=== PATIENT | female | born 1945 | race Caucasian/White ===

== ENCOUNTER 2022-04-21 23:18 | Inpatient (IN) | payer OTHER ==
[~2022-04-21] VITALS: Ht 157.5 cm; Wt 68.9 kg
[2022-04-21 23:35] VITALS: BP 155/71
--- NOTE | 2022-04-21 23:35 | NUR ---
TO BED VIA W/C
--- NOTE | 2022-04-22 00:15 | NUR ---
PT TO RADIOLOGY AT THIS TIME
[2022-04-22] MEDS ORDERED: NACL 0.9% 1,000 ML IV ONE ×2 (00:30→04:55)
[2022-04-22 01:48] LABS: BASOPHILS # (AUTO) 0.1 K/uL (0.00-0.22); BASOPHILS % (AUTO) 0.5 % (0.0-2.0); EOSINOPHILS # (AUTO) 0.1 K/uL (0-0.4); EOSINOPHILS % (AUTO) 0.6 % (0.0-4.0); HEMATOCRIT 40.1 % (36-48); HEMOGLOBIN 13.5 g/dL (12.0-16.0); LYMPHOCYTES # (AUTO) 1.8 K/uL (2.5-16.5); LYMPHOCYTES % (AUTO) 18.2 % (20.5-51.1); MEAN CORPUSCULAR HEMOGLOBIN 31 pg (27-31); MEAN CORPUSCULAR HGB CONC 34 g/dL (33-37); MEAN CORPUSCULAR VOLUME 92.6 fL (80-94); MONOCYTES # (AUTO) 0.6 K/uL (0.8-1.0); MONOCYTES % (AUTO) 6.3 % (1.7-9.3); NEUTROPHILS # (AUTO) 7.5 K/uL (1.8-7.7); NEUTROPHILS % (AUTO) 74.4 % (42.2-75.2); PLATELET COUNT (AUTO) 284 K/uL (140-450); RED BLOOD CELL COUNT(AUTO) 4.33 MIL/uL (4.20-5.40); RED CELL DISTRIBUTION WIDTH 15.8 % (11.6-13.7)
[2022-04-22 02:03] LABS: ALBUMIN 4.2 g/dL (3.4-5.0); ANION GAP 9.6 (8-16); ASPARTATE AMINOTRANSFERASE 17 U/L (15-37); CARBON DIOXIDE 33.3 mmol/L (21-32); CHLORIDE 98 mmol/L (98-107); GLUCOSE 102 mg/dL (74-106); SODIUM SERUM 138 mmol/L (136-145); TOTAL BILIRUBIN 0.6 mg/dL (0.0-1.0); UREA NITROGEN, BLOOD 13 mg/dL (7-18)
[2022-04-22 02:08] LABS: POTASSIUM 2.9 mmol/L (3.5-5.1)
[2022-04-22] MEDS ORDERED: ACETAMINOPHEN EXTRA STRENGTH 500 MG TAB PO ONE (02:20)
[2022-04-22] MEDS ORDERED: OXYB5TAB44 PO (03:19)
[2022-04-22] MEDS ORDERED: ATOR20TA PO (03:19)
[2022-04-22] MEDS ORDERED: TRA200 PO (03:19)
[2022-04-22] MEDS ORDERED: [UNRECOGNIZED DRUG - CODE] PO (03:19)
[2022-04-22] MEDS ORDERED: RISP0.5T3 PO (03:19)
[2022-04-22] MEDS ORDERED: ATI.5 PO (03:19)
--- NOTE | 2022-04-22 03:59 | NUR ---
URINE COLLECTED AND SENT TO LAB. UPDATED PT AND FRIEND ON POC FOR ADMISSION. PT VERBALIZES FULL UNDERSTANDING. VSS. DENIES ANY NEEDS AT THIS TIME.
[2022-04-22 04:08] LABS: APPEARANCE,URINE CLEAR (CLEAR); BILIRUBIN,URINE NEGATIVE (NEGATIVE); BLOOD, URINE TRACE-I (NEGATIVE); COLOR,URINE YELLOW (YELLOW); LEUKOCYTE ESTERASE ,URINE NEGATIVE (NEGATIVE); NITRITE, URINE NEGATIVE (NEGATIVE); PH,URINE 7.5 (5.0-9.0); UGLUCOSE NEGATIVE (NEGATIVE)
[2022-04-22] MEDS ORDERED: KCL 20 MEQ/WATER INJ PREMIX 200 ML IV ONE (04:20)
[2022-04-22 04:44] LABS: RBC,URINE 0-5 /HPF (0-5); WBC,URINE 0-5 /HPF (0-5)
[2022-04-22] MEDS ORDERED: AMLO5TAB PO (04:54)
[2022-04-22] MEDS ORDERED: ACET-10509 PO (04:54)
[2022-04-22] MEDS ORDERED: ATI.5 SL (05:15)
[2022-04-22] MEDS ORDERED: [UNRECOGNIZED DRUG - CODE] TD (05:15)
[2022-04-22] MEDS ORDERED: MSCON15 SG (05:15)
[2022-04-22] MEDS ORDERED: MSCON15 SL (05:15)
[2022-04-22] MEDS ORDERED: HYOS-83 PO (05:15)
[2022-04-22] MEDS ORDERED: BISA-218 RC (05:15)
[2022-04-22] MEDS ORDERED: HYDR-5080 PO (05:15)
[2022-04-22] MEDS ORDERED: ONDA-188 PO (05:15)
[2022-04-22] MEDS ORDERED: FENT100T TD (05:15)
--- NOTE | 2022-04-22 07:25 | NUR ---
REPORT TO CARMEN MOORE
--- NOTE | 2022-04-22 07:25 | NUR ---
PT CALM AND RESTING. AAO4, VITALS STABLE.
--- NOTE | 2022-04-22 07:30 | NUR ---
76/F FROM HOME D/T FALL AT 1600 YESTERDAY. PT REPORTS HITTIG HEAD TO CARPET FLOOR AND LOW BACK PAIN AND LEFT KNEE PAIN. DENIES LOC.
[2022-04-22] MEDS: amLODIPine 5 MG TAB PO SCH (10:00)
[2022-04-22] MEDS: OXYBUTYNIN 5 MG TAB PO SCH (10:00)
[2022-04-22] MEDS: risperiDONE 1 MG TAB PO SCH ×2 (10:01→21:33)
--- NOTE | 2022-04-22 14:35 | NUR ---
PER DR ANDRADE, REPEAT CMP ONCE ORDERED.
--- NOTE | 2022-04-22 14:44 | NUR ---
ENDORSED CARE TO SHIRA NASCIMENTO
--- NOTE | 2022-04-22 14:45 | NUR ---
Report recieved from OSCAR Jackson for transfer of care.
--- NOTE | 2022-04-22 15:04 | NUR ---
Patient was made clean and dry. Fresh diaper was applied.
--- NOTE | 2022-04-22 15:40 | NUR ---
Patient has a headache. Requesting PRN pain medication. Dr. Peterson was notified. Recieved new orders for Tylenol 500 mg PO PRN [id number]. Orders carried out.
[2022-04-22 16:03] LABS: ANION GAP 10.4 (8-16); CARBON DIOXIDE 29.1 mmol/L (21-32); CHLORIDE 103 mmol/L (98-107); GLUCOSE 93 mg/dL (74-106); POTASSIUM 3.5 mmol/L (3.5-5.1); SODIUM SERUM 139 mmol/L (136-145); UREA NITROGEN, BLOOD 13 mg/dL (7-18)
[2022-04-22] MEDS: ACETAMINOPHEN EXTRA STRENGTH 500 MG TAB PO PRN ×2 (16:19→21:52)
[2022-04-22 16:22] LABS: ASPARTATE AMINOTRANSFERASE 23 U/L (15-37); TOTAL BILIRUBIN 0.3 mg/dL (0.0-1.0)
[2022-04-22 16:26] LABS: ALBUMIN 3.7 g/dL (3.4-5.0)
--- NOTE | 2022-04-22 18:28 | NUR ---
Patient was offered dinner, patient is sitting up eating dinner.
--- NOTE | 2022-04-22 19:22 | NUR ---
Report given to OSCAR Chavez for transfer of care.
--- NOTE | 2022-04-22 21:31 | NUR ---
Given routine HS medications.
[2022-04-22] MEDS: ATORVASTATIN 20 MG TAB PO SCH (21:32)
--- NOTE | 2022-04-22 21:49 | NUR ---
Patient reported, felt anxious and had headache , can not sleep. Given PRN medications.
[2022-04-22] MEDS: LORazepam 0.5 MG TAB PO PRN (21:52)
--- NOTE | 2022-04-23 00:10 | NUR ---
Patient states " I still can not sleep and I want to go home. "
--- NOTE | 2022-04-23 02:54 | NUR ---
Patient appears to be resting comfortably in bed. Vital Signs within normal limits. Respirations even and unlabored.
--- NOTE | 2022-04-23 04:20 | NUR ---
Patient states " I still had headache". BP 183/109
[2022-04-23] MEDS: ACETAMINOPHEN EXTRA STRENGTH 500 MG TAB PO PRN (04:46)
--- NOTE | 2022-04-23 04:47 | NUR ---
Given Tylenol PO for headache and re-check BP 182/91 (portable BP machine).
--- NOTE | 2022-04-23 06:24 | NUR ---
Blood for labwork drawn by field sampling technician. Patient tolerated well.
--- NOTE | 2022-04-23 06:27 | NUR ---
Provided AM care.
[2022-04-23 06:46] LABS: BASOPHILS # (AUTO) 0.1 K/uL (0.00-0.22); BASOPHILS % (AUTO) 0.9 % (0.0-2.0); EOSINOPHILS # (AUTO) 0.2 K/uL (0-0.4); EOSINOPHILS % (AUTO) 2.9 % (0.0-4.0); HEMATOCRIT 42.8 % (36-48); HEMOGLOBIN 14.3 g/dL (12.0-16.0); LYMPHOCYTES # (AUTO) 1.9 K/uL (2.5-16.5); LYMPHOCYTES % (AUTO) 31.7 % (20.5-51.1); MEAN CORPUSCULAR HEMOGLOBIN 32 pg (27-31); MEAN CORPUSCULAR HGB CONC 33 g/dL (33-37); MEAN CORPUSCULAR VOLUME 94.1 fL (80-94); MONOCYTES # (AUTO) 0.5 K/uL (0.8-1.0); MONOCYTES % (AUTO) 7.8 % (1.7-9.3); NEUTROPHILS # (AUTO) 3.4 K/uL (1.8-7.7); NEUTROPHILS % (AUTO) 56.7 % (42.2-75.2); PLATELET COUNT (AUTO) 253 K/uL (140-450); RED BLOOD CELL COUNT(AUTO) 4.54 MIL/uL (4.20-5.40); RED CELL DISTRIBUTION WIDTH 16.3 % (11.6-13.7); WHITE BLOOD COUNT (AUTO) 6.1 K/uL (4.8-10.8)
[2022-04-23 07:15] LABS: ANION GAP 12.9 (8-16); CARBON DIOXIDE 27.4 mmol/L (21-32); CHLORIDE 103 mmol/L (98-107); CREATININE 0.7 mg/dL (0.6-1.3); GLUCOSE 106 mg/dL (74-106); POTASSIUM 3.3 mmol/L (3.5-5.1); SODIUM SERUM 140 mmol/L (136-145); UREA NITROGEN, BLOOD 11 mg/dL (7-18)
--- NOTE | 2022-04-23 07:16 | NUR ---
Report given to SOCAR Cardoso and endorse care of patient.
[2022-04-23] MEDS ORDERED: MAG SULF 2000 MG/WATER PREMIX 50 ML IV PRN (08:00)
--- NOTE | 2022-04-23 09:07 | NUR ---
PATIENT HAS BEEN SCREENED AND CATEGORIZED LOW NUTRITION RISK. PATIENT WILL BE SEEN WITHIN 7 DAYS OF ADMISSION. 04/22/22-04/29/[address]
[2022-04-23] MEDS: OXYBUTYNIN 5 MG TAB PO SCH (09:30)
[2022-04-23] MEDS: amLODIPine 5 MG TAB PO SCH (09:30)
[2022-04-23] MEDS: risperiDONE 1 MG TAB PO SCH ×2 (09:30→21:16)
--- NOTE | 2022-04-23 09:48 | NUR ---
ON DUTY RECEIVED THIS PT A/OX4, SPEAKS FULL SENTENCES, FOLLOWS COMMAND, DENIES MANRIQUE AND DIZZINESS. NO ACUTE DISTRESS. BREAFAST OFFRED. PT ATE 25%. MORNING MEDS GIVEN.
--- NOTE | 2022-04-23 09:56 | NUR ---
URINE PUREWICK SYSTEM DUMPTED 1500ML.
--- NOTE | 2022-04-23 10:13 | NUR ---
BP WAS HIGH 207/78 IN THE MORNING. PT IS COMPLAINING MANRIQUE WELL. ATTENDING DR. ANDRADE WAS CALLED AND INFORMED PT'S INFO. DR. ANDRADE SAID HE WILL BE HERE SOON.
--- NOTE | 2022-04-23 10:29 | NUR ---
DR. ANDRADE CAME. LABETALOL 200MG PO ONCE WAS ORDERED FOR TODAY.
[2022-04-23] MEDS ORDERED: LABETALOL 100 MG TAB PO SCH (10:30)
[2022-04-23] MEDS ORDERED: LABETALOL 200 MG TAB PO SCH (11:30)
--- NOTE | 2022-04-23 11:59 | NUR ---
LABETOLOL WAS DELIVERED FROM PHARMACY THEN ADMINISTERED TO PT.
[2022-04-23] MEDS ORDERED: DOCUSATE SODIUM 100 MG GELCAP PO PRN (15:55)
[2022-04-23] MEDS ORDERED: POTASSIUM CHLORIDE 10 MEQ TABER PO PRN (15:55)
[2022-04-23] MEDS ORDERED: LORazepam 2 MG/ML VIAL IVP PRN (15:55)
[2022-04-23] MEDS ORDERED: MORPHINE SULFATE 2 MG/ML SYR IVP PRN (15:55)
[2022-04-23] MEDS ORDERED: ONDANSETRON 4 MG/2 ML VIAL IVP PRN (15:55)
--- NOTE | 2022-04-23 16:14 | NUR ---
WITH ER EMT'S ASSISTANCE, PT STAND UP AND MOVE LITTLE BIT BEDSIDE. ONE MORE CANITER OF URINE DAMPLED. 1200ML.
--- NOTE | 2022-04-23 18:15 | NUR ---
WITH ED EMT'S ASSISTANCE, PT WENT TO BATHROOM FOR BM.
--- NOTE | 2022-04-23 19:18 | NUR ---
Received report from OSCAR Cardoso and continue care of patient.
--- NOTE | 2022-04-23 20:42 | NUR ---
Cleaned and rinsed eyes by EMT.
[2022-04-23] MEDS: ATORVASTATIN 20 MG TAB PO SCH (21:15)
[2022-04-23] MEDS: ZOLPIDEM 10 MG TAB PO PRN (21:36)
--- NOTE | 2022-04-23 21:36 | NUR ---
Patient states " I can not sleep". Given Ambien 10 mg PO as protocol.
--- NOTE | 2022-04-24 00:24 | NUR ---
Patient moved to hospital bed.
--- NOTE | 2022-04-24 02:07 | NUR ---
Patient appears to be resting comfortably in bed. Vital Signs within normal limits. Respirations even and unlabored.
--- NOTE | 2022-04-24 05:34 | NUR ---
Patient appears to be resting comfortably in bed. Respirations even and unlabored.
--- NOTE | 2022-04-24 06:05 | NUR ---
Patient was sitting at bedside. Patient reported, was sleeping last night.
--- NOTE | 2022-04-24 08:00 | NUR ---
ASSUMED PATIENT CARE EYE CLOSE EASILY AWAKEN WILL CONTINUE TO MONITOR.
[2022-04-24 08:19] LABS: ANION GAP 14.3 (8-16); CARBON DIOXIDE 28.1 mmol/L (21-32); CHLORIDE 101 mmol/L (98-107); CREATININE 0.8 mg/dL (0.6-1.3); GLUCOSE 112 mg/dL (74-106); POTASSIUM 3.4 mmol/L (3.5-5.1); SODIUM SERUM 140 mmol/L (136-145); UREA NITROGEN, BLOOD 14 mg/dL (7-18)
[2022-04-24 08:22] LABS: BASOPHILS # (AUTO) 0.1 K/uL (0.00-0.22); BASOPHILS % (AUTO) 0.7 % (0.0-2.0); EOSINOPHILS # (AUTO) 0.1 K/uL (0-0.4); EOSINOPHILS % (AUTO) 1.3 % (0.0-4.0); HEMATOCRIT 42.3 % (36-48); HEMOGLOBIN 14.2 g/dL (12.0-16.0); LYMPHOCYTES # (AUTO) 2.3 K/uL (2.5-16.5); LYMPHOCYTES % (AUTO) 22.9 % (20.5-51.1); MEAN CORPUSCULAR HEMOGLOBIN 32 pg (27-31); MEAN CORPUSCULAR HGB CONC 34 g/dL (33-37); MEAN CORPUSCULAR VOLUME 93.6 fL (80-94); MONOCYTES # (AUTO) 0.7 K/uL (0.8-1.0); MONOCYTES % (AUTO) 7.3 % (1.7-9.3); NEUTROPHILS % (AUTO) 67.8 % (42.2-75.2); PLATELET COUNT (AUTO) 153 K/uL (140-450); RED BLOOD CELL COUNT(AUTO) 4.52 MIL/uL (4.20-5.40); RED CELL DISTRIBUTION WIDTH 16.6 % (11.6-13.7); WHITE BLOOD COUNT (AUTO) 10.3 K/uL (4.8-10.8)
--- NOTE | 2022-04-24 09:30 | NUR ---
PATIENT GIVEN BREAKFAST.
[2022-04-24] MEDS: LABETALOL 200 MG TAB PO SCH (09:41)
[2022-04-24] MEDS: OXYBUTYNIN 5 MG TAB PO SCH (09:41)
[2022-04-24] MEDS: risperiDONE 1 MG TAB PO SCH ×2 (09:41→22:11)
[2022-04-24] MEDS: amLODIPine 5 MG TAB PO SCH (09:41)
--- NOTE | 2022-04-24 10:30 | NUR ---
PATIENT ASSISTED IN BED WITH NEW GOWN AND SHEETS.
[2022-04-24] MEDS ORDERED: bisacodyL 10 MG SUPP RC PRN (10:45)
--- NOTE | 2022-04-24 11:10 | NUR ---
PATIENT ON THE PHONE WITH FAMILY.
--- NOTE | 2022-04-24 11:44 | NUR ---
PATIENT EYE CLOSE IS RESTING COMFORTABLE.
[2022-04-24] MEDS: ACETAMINOPHEN 325 MG TAB PO PRN (13:30)
--- NOTE | 2022-04-24 18:38 | NUR ---
PHYSICAL THERAPY AT BEDSIDE FOR INITIAL ASSESSMENT/EVALUATION.
--- NOTE | 2022-04-24 20:00 | NUR ---
T IS IN BED RESTING WITH HOB ELEVTED. ON BEDSIDE SOUND TECHNICIAN. PT IS ADMITED. IS HOLDING PENDING BED STATUS. PT IS A&OX4 RESP EVEN AND UNLABORED. SKIN WARM AND DRY AND INTACT. PURWIC IN PLACE. BED AT LOWEST LEVEL SIDE RAILS UP X2
[2022-04-24] MEDS ORDERED: CRUSHER, PILL MC ONE (22:00)
[2022-04-24] MEDS: ATORVASTATIN 20 MG TAB PO SCH (22:11)
--- NOTE | 2022-04-24 22:12 | NUR ---
Patient will be admitted to care of DR ANDRADE. Admited to TELE]. Will go to room 111B. Belongings list completed. Report to LESTER MOORE.
--- NOTE | 2022-04-24 22:12 | NUR ---
REPORT GIVEN TO LESTER MOORE
--- NOTE | 2022-04-24 22:44 | NUR ---
The patient's care was reviewed and supervised by Asha Long RN.
--- NOTE | 2022-04-24 23:25 | NUR ---
PATIENT WAS BROUGHT TO MST UNIT FROM ER VIA RMALONE AWAKE ALERT ORIENTED. ON ROOM AIR. NO S/S OF RESPIRATORY DISTRESS. RESPIRATION EVEN UNLABORED. ALL SAFETY PRECAUTIONS ARE IN PLACE. MRSA SCREENING DONE. ORIENTED TO CALL LIGHT , ROOM , RESTROOM STAFF. WILL CONTINUE TO MONITOR PT.
[2022-04-24] MEDS: ZOLPIDEM 10 MG TAB PO PRN (23:39)
[2022-04-25] VITALS: BP 180/75
--- NOTE | 2022-04-25 01:05 | NUR ---
PATIENT BP-180/75 P-[address] DARDEN AWAITING FOR REPLY.
[2022-04-25] MEDS: LORazepam 0.5 MG TAB PO PRN (04:22)
--- NOTE | 2022-04-25 05:15 | NUR ---
PATIENT KEEP ON GETTING OUT OF BED GOING TO OTHER PATIENT BED. PT IS FALL RISK. DR. DARDEN NOTIFIED WITH ORDERS NOTED. CARRIED OUT. PATIENT ON BILATERAL SOFT WRIST RESTRAINTS.
[2022-04-25 07:27] LABS: BASOPHILS # (AUTO) 0.1 K/uL (0.00-0.22); BASOPHILS % (AUTO) 0.9 % (0.0-2.0); EOSINOPHILS # (AUTO) 0.1 K/uL (0-0.4); EOSINOPHILS % (AUTO) 1.1 % (0.0-4.0); HEMATOCRIT 42.7 % (36-48); HEMOGLOBIN 14.8 g/dL (12.0-16.0); LYMPHOCYTES % (AUTO) 15.8 % (20.5-51.1); MEAN CORPUSCULAR HEMOGLOBIN 32 pg (27-31); MEAN CORPUSCULAR HGB CONC 35 g/dL (33-37); MEAN CORPUSCULAR VOLUME 92.4 fL (80-94); MONOCYTES # (AUTO) 0.6 K/uL (0.8-1.0); MONOCYTES % (AUTO) 4.8 % (1.7-9.3); NEUTROPHILS # (AUTO) 9.9 K/uL (1.8-7.7); NEUTROPHILS % (AUTO) 77.4 % (42.2-75.2); PLATELET COUNT (AUTO) 284 K/uL (140-450); RED BLOOD CELL COUNT(AUTO) 4.62 MIL/uL (4.20-5.40); RED CELL DISTRIBUTION WIDTH 16.3 % (11.6-13.7); WHITE BLOOD COUNT (AUTO) 12.7 K/uL (4.8-10.8)
--- NOTE | 2022-04-25 07:46 | NUR ---
ENDORSED PATIENT TO NURSE CHOCO FOR CONTINUITY OF CARE. PATIENT STABLE.
--- NOTE | 2022-04-25 07:58 | NUR ---
RECEIVED PT AWAKE, ALERT AND ORIENTED, ON ROOM AIR, SEATED ON THE BED WITH SIDE RAILS UP AND CALL LIGHT WITHIN REACH, PT IS ON BILATERAL SOFT WRIST RESTRAINT, FOR SAFETY, PT HAS NO IV LINE ACCESS, PT IS REFUSING PER RN REPORT, ON TELE MONITOR, NO SIGN OF DISTRESS NOTED AND WILL CONTINEU TO MONITOR PT.
[2022-04-25 08:00] VITALS: BP 190/96
[2022-04-25 08:03] LABS: ANION GAP 17.8 (8-16); CARBON DIOXIDE 23.5 mmol/L (21-32); CHLORIDE 101 mmol/L (98-107); CREATININE 0.7 mg/dL (0.6-1.3); GLUCOSE 107 mg/dL (74-106); POTASSIUM 4.3 mmol/L (3.5-5.1); SODIUM SERUM 138 mmol/L (136-145); UREA NITROGEN, BLOOD 15 mg/dL (7-18)
--- NOTE | 2022-04-25 10:00 | NUR ---
ASSISTED PT TO GO TO THE BATHROOM AND HAD A BOWEL MOVEMENT.
[2022-04-25] MEDS: LABETALOL 200 MG TAB PO SCH (10:03)
[2022-04-25] MEDS: OXYBUTYNIN 5 MG TAB PO SCH (10:03)
[2022-04-25] MEDS: ATORVASTATIN 20 MG TAB PO SCH (10:04)
[2022-04-25] MEDS: risperiDONE 1 MG TAB PO SCH ×2 (10:05→20:23)
[2022-04-25] MEDS: amLODIPine 5 MG TAB PO SCH (10:05)
--- NOTE | 2022-04-25 10:25 | NUR ---
IV RE-INSERTION WAS DONE TO PT NOW, BUT UNSUCCESSFUL AFTER 4 ATTEMPTS.
--- NOTE | 2022-04-25 11:00 | NUR ---
PT IS CALM AND RESTRAINT WAS DISCONTINUED NOW.
[2022-04-25 12:00] VITALS: BP 130/61
[2022-04-25] MEDS: ACETAMINOPHEN 325 MG TAB PO PRN (12:02)
--- NOTE | 2022-04-25 13:04 | NUR ---
DC PLANNING: PATIENT HAS A DC ORDER TO GO HOME WITH HOME HEALTH FOR PHYSICAL THERAPY. FAXED TO [facility]. AWAITING FOR THE RESPONSE. CM TO FOLLOW Addendum: 04/26/22 at 1158 by Angela Gregg RN DC PLANNING: RECEIVED A CALL FROM [facility] SPOKE WITH SANDIP SINGLETARY STATED PT DOES NOT QUALIFY FOR SNF BECAUSE OF PHYSICAL THERAPY NOTES, WALKS 75 FT AND RECOMMENDED HOME HEALTH FOR PT. SANDIP ARRANGED HOME HEALTH WITH [facility] AND WILL ASSIGNED THE NEUROLOGIST AND WILL CONTACT PATIENT. NOTIFIED PATIENT. GEMINI TO FOLLOW
--- NOTE | 2022-04-25 14:07 | NUR ---
DISCHARGE PLANNING PATIENT IS A 76 YEAR OLD FEMALE ADMITTED IN THE [facility]/ED ON 04/22/2022 DUE TO FAILURE TO THRIVE, HYPOKA. SW MEET WITH PATIENT AT BEDSIDE TO DISCUSS AND GATHER PATIENT'S COLLATERAL INFORMATION. PATIENT WAS AWAKE AN ALERT ABLE TO PROVIDE HER OWN INF. DURING THE MEETING WITH SW. PATIENT REPORTED THAT SHE LIVES HOME ALONE IN [facility] AND HAS A LIMITED SUPPORT SYSTEM, SHE REPORTED THAT SHE HAS 3 SON'S [place] IN [place], SECOND LIVES IN [place], AND THE THIRD ONE LIVES HERE IN [place] WHO IS THE ONLY ONE THAT CARES FOR HER AT THIS TIME. BROOKE RUGGIERO. PER PATIENT SHE HAS NO A.D. AND DECLINED ALL FORMS PROVIDED BY [facility]. PATIENT REPORTED THAT HER SON BROOKE RUGGIERO IS HER EMERGENCY CONTACT AND HER MEDICAL DECISION MAKER. PATIENT REPORTED HAVING DR. KEVIN PARISI HER PCP AND HER LAST VISIT WITH HIM WAS ABOUT 2 WEEKS AGO. SW EXPLAINED TO PATIENT ABOUT THE IMPORTANCE OF MAKING A FOLLOW UP APPOINTMENT WITH PCP WITHIN 5-7 DAYS AFTER HER DISCHARGE. PATIENT AGREED AND REPORTED THAT SHE WILL DO IT HER SELF AND DECLINED FOR SW TO DO HER APPOINTMENT. PER PATIENT SHE HAS NO ISSUES WITH TAKING OR GETTING MEDICATIONS FROM HER PHARMACY AT [facility] IN [facility]. PER PATIENT SHE HAS A CANE, AND A WALKER AT HOME HER ONLY DME. PATIENT REPORTED THAT SHE WANTS TO GO HOME WHEN SHE IS READY AND STABLE TO DISCHARGE; HOWEVER IS OPEN FOR MD. RECOMMENDATIONS TO HOME HEALTH ONLY NO PREFERENCE SW/CM WILL FOLLOW UP NEEDED.
--- NOTE | 2022-04-25 15:00 | NUR ---
PT IS RESTING NOW AND IS CALM.
[2022-04-25 16:00] VITALS: BP 118/76
--- NOTE | 2022-04-25 18:49 | NUR ---
PT IS EATING HER DINNER NOW CALMLY
--- NOTE | 2022-04-25 19:20 | NUR ---
ENDORSED PT TO NIGHT RN FOR CONTINUITY OF CARE, PT IS STABLE AT THIS TIME.
--- NOTE | 2022-04-25 19:25 | NUR ---
RECEIVED PT IN BED AWAKE, ALERT AND ORIENTED. DENIES PAIN. DENIES SHORTNESS OF BREATH. REFUSED IV TO BE PLACED, EXPLAINED IMPORTANCE OF IV, PER PT: " I HAVE BEEN POKED SEVERAL TIMES.". SKIN WARM AND DRY TO TOUCH. SAFETY PRECAUTION IN PLACE, CALL LIGHT IN REACH, INSTRUCTED TO CALL IF ASSISTANCE IS NEEDED, PT VERBALLY ACKNOWLEDGED.
--- NOTE | 2022-04-25 19:45 | NUR ---
ASSISTED PT TO THE BATHROOM AND BACK IN BED. GOWN AND LINENS CHANGED. MADE COMFORTABLE IN BED, PROVIDED WARM BLANKET.
[2022-04-25 20:00] VITALS: BP 134/59
--- NOTE | 2022-04-25 22:00 | NUR ---
PATIENT IS ASLEEP. BREATHING EVEN AND UNLABORED. CALL LIGHT IN REACH.
[2022-04-26] VITALS: BP 119/62
--- NOTE | 2022-04-26 01:12 | NUR ---
ASSISTED PT TO THE BATHROOM AND BACK TO BED, VOIDED WITHOUT DIFFICULTY. MADE COMFORTABLE IN BED. CALL LIGHT IN REACH,
[2022-04-26 04:00] VITALS: BP 121/68
--- NOTE | 2022-04-26 04:10 | NUR ---
VITAL SIGNS TAKEN AND DOCUMENTED. PT ASLEEP. NO S/SX OF DISTRESS. CALL LIGHT IN REACH.
[2022-04-26] MEDS: ACETAMINOPHEN EXTRA STRENGTH 500 MG TAB PO PRN ×2 (05:21→14:23)
[2022-04-26 05:51] LABS: BASOPHILS # (AUTO) 0.2 K/uL (0.00-0.22); BASOPHILS % (AUTO) 2.1 % (0.0-2.0); EOSINOPHILS # (AUTO) 0.2 K/uL (0-0.4); EOSINOPHILS % (AUTO) 2.6 % (0.0-4.0); HEMATOCRIT 38.5 % (36-48); HEMOGLOBIN 13.3 g/dL (12.0-16.0); LYMPHOCYTES # (AUTO) 2.4 K/uL (2.5-16.5); LYMPHOCYTES % (AUTO) 26.7 % (20.5-51.1); MEAN CORPUSCULAR HEMOGLOBIN 32 pg (27-31); MEAN CORPUSCULAR HGB CONC 35 g/dL (33-37); MEAN CORPUSCULAR VOLUME 92.4 fL (80-94); MONOCYTES # (AUTO) 0.8 K/uL (0.8-1.0); MONOCYTES % (AUTO) 8.9 % (1.7-9.3); NEUTROPHILS # (AUTO) 5.4 K/uL (1.8-7.7); NEUTROPHILS % (AUTO) 59.7 % (42.2-75.2); PLATELET COUNT (AUTO) 285 K/uL (140-450); RED BLOOD CELL COUNT(AUTO) 4.16 MIL/uL (4.20-5.40); RED CELL DISTRIBUTION WIDTH 16.8 % (11.6-13.7)
--- NOTE | 2022-04-26 06:14 | NUR ---
PATIENT IS ASLEEP. NO DISTRESS NOTED. ALL NEEDS ATTENDED TO. SAFETY PRECAUTIONS MAINTAINED DURING THE SHIFT, CALL LIGHT REMAINS WITHIN REACH.
[2022-04-26 06:43] LABS: ANION GAP 14.8 (8-16); CARBON DIOXIDE 24.3 mmol/L (21-32); CHLORIDE 103 mmol/L (98-107); CREATININE 0.7 mg/dL (0.6-1.3); GLUCOSE 99 mg/dL (74-106); POTASSIUM 4.1 mmol/L (3.5-5.1); SODIUM SERUM 138 mmol/L (136-145); UREA NITROGEN, BLOOD 18 mg/dL (7-18)
[2022-04-26] MEDS: OXYBUTYNIN 5 MG TAB PO SCH (09:05)
[2022-04-26] MEDS: amLODIPine 5 MG TAB PO SCH (09:06)
[2022-04-26] MEDS: ATORVASTATIN 20 MG TAB PO SCH (09:06)
[2022-04-26] MEDS: risperiDONE 1 MG TAB PO SCH (09:07)
[2022-04-26] MEDS: LABETALOL 200 MG TAB PO SCH (09:07)
[2022-04-26] MEDS ORDERED: ACET250T18 PO (10:39)
[2022-04-26 14:55] VITALS: BP 121/68
--- NOTE | 2022-04-26 16:00 | NUR ---
PATIENT DISCHARGED HOME WITH SON. WALKER PROVIDED. PERSONAL BELONGINGS WAS SENT WITH PATIENT. STABLE UPON DISCHARGE.
--- NOTE | 2022-05-02 16:25 | NUR ---
yanna willoughby'd home with [facility] NACERT on 04/26/22 at 1550
== END 2022-04-26 15:50 | disposition home or self-care (01) | DRG 57 ==
LOC: MED 23:18 → MTU 04-22 05:04
PROVIDERS: ADMIT Family Medicine; ATTEND Family Medicine
DX: G91.2 (Idiopathic) normal pressure hydrocephalus (principal); E87.6 Hypokalemia; F41.9 Anxiety disorder, unspecified; G93.89 Other specified disorders of brain; Z20.822 Contact with and (suspected) exposure to COVID-19; Z79.891 Long term (current) use of opiate analgesic; Z79.899 Other long term (current) drug therapy
CPT/HCPCS: 36415; 70450; 71045; 73502; 80048; 80053; 81001; 82550; 83036; 83735; 84484; 85025; 93005; 96361; 96365; 97116; 97163-GP; 97530; 99285; J1644; J3480; J7030; Q0092